=== PATIENT | female | born 1935 | race Caucasian/White ===

== ENCOUNTER → 2017-01-25 | Outpatient (CLI) | payer OTHER, BC ==
[~2017-01-25] VITALS: Ht 167.6 cm; Wt 55.8 kg
[~2017-01-25] MED LIST: ANTIVERT25 MG PO; ASPIRIN81 M2 PO; CALCIUM PO; CYCLOBENZAPRINE5 MG; FOSAMAX70 MG PO; VITAMIN D400 UNI1 PO
[2017-01-25 14:00] LABS: EOSINOPHIL (%) 2.4 % (0-5); EOSINOPHIL COUNT 0.2 K/uL (0-0.3); HEMATOCRIT 33.3 % (36.0-46.0); IMMATURE GRANULOCYTE (%) 0.3 % (0.0-0.7); LYMPHOCYTE COUNT 2.2 K/uL (1.0-2.8); MCH 26.7 PG (29.0-34.0); MCV 88.8 FL (83-99); MEAN PLAT.VOLUME 9.8 uM^3 (9.5-12.4); MONOCYTE (%) 9.3 % (3-12); MONOCYTE COUNT 0.7 K/uL (0-0.8); NEUTROPHIL (%) 56.3 % (45-76); PLATELET COUNT 459 K/uL (156-360); RBC DIS.WIDTH-CV 14.7 % (11.8-14.6); RBC DIS.WIDTH-SD 47.6 % (39-53); RED BLOOD COUNT 3.75 M/uL (3.80-5.20); WHITE BLOOD COUNT 7.1 K/uL (4.1-10.2)
[2017-01-25 14:09] LABS: PROTHROMBIN TIME 10.4 (9.2-11.2); PTT 20.5 (25-32)
== END | disposition home or self-care (01) ==
LOC: AMB 13:19
PROVIDERS: Internal Medicine Pulmonary Disease
DX: T17.890A Other foreign object in other parts of respiratory tract causing asphyxiation, initial encounter (principal); J98.09 Other diseases of bronchus, not elsewhere classified; Z88.0 Allergy status to penicillin; J44.9 Chronic obstructive pulmonary disease, unspecified; Z87.891 Personal history of nicotine dependence; Z79.82 Long term (current) use of aspirin
CPT/HCPCS: 85025; 85610; 85730; 87070; 87077; 87116; 87147; 87205; 87206; 88108; J0461; J2175; J2250; J2310; J2550; J3010

== ENCOUNTER 2018-04-22 18:01 | Emergency (ER) | payer OTHER, BC ==
[~2018-04-22] VITALS: Ht 165.1 cm; Wt 56.9 kg
[2018-04-22 19:26] VITALS: BP 156/65
== END 2018-04-22 19:30 | disposition home or self-care (01) ==
LOC: EME 18:01
PROC: 0W3Q3ZZ Control Bleeding in Respiratory Tract, Percutaneous Approach (ICD-10-PCS; principal; 2018-04-22)
DX: R04.0 Epistaxis (principal); H54.61 Unqualified visual loss, right eye, normal vision left eye; Z79.82 Long term (current) use of aspirin; Z87.891 Personal history of nicotine dependence; Z86.69 Personal history of other diseases of the nervous system and sense organs; Z85.9 Personal history of malignant neoplasm, unspecified
CPT/HCPCS: 99281; 99284